=== PATIENT | male | born 1935 | race Asian ===

== ENCOUNTER 2017-09-26 22:14 | Emergency (ER) | payer OTHER ==
[~2017-09-26] VITALS: Ht 167.6 cm; Wt 68.0 kg
[2017-09-26] MEDS ORDERED: TYLENOL325 MG PO (22:28)
[2017-09-26] MEDS ORDERED: DIVALPROEX125 M1 PO (22:29)
[2017-09-26] MEDS ORDERED: LORA0.5T17 PO (22:29)
[2017-09-26] MEDS ORDERED: DONE5TAB PO (22:30)
[2017-09-26] MEDS ORDERED: GABA300C2 PO (22:32)
[2017-09-26] MEDS ORDERED: DRONABINOL5 MG PO (22:32)
[2017-09-26] MEDS ORDERED: NAMENDA10 MG PO (22:36)
[2017-09-26] MEDS ORDERED: QUET200T28 PO (22:37)
[2017-09-26 23:07] LABS: PLATELET COUNT 255 K/uL (142-355)
[2017-09-26 23:12] LABS: POTASSIUM 4.4 mmol/L (3.6-5.2)
[2017-09-26 23:52] VITALS: BP 130/66; TEMP 98.4
[2017-09-27] MEDS ORDERED: SEROQUEL50 MG PO (01:05)
== END 2017-09-26 23:52 | disposition other institution (70) ==
LOC: ED 22:14 → EDBD 22:14 → ED 23:52
PROVIDERS: Specialist
DX: Z04.6 Encounter for general psychiatric examination, requested by authority (principal)
CPT/HCPCS: 36415; 80053; 83605; 83735; 84100; 84443; 85027; 93005; 99285